=== PATIENT | female | born 1960 | race Caucasian/White ===

== ENCOUNTER 2024-04-15 14:55 | Emergency (ER) | payer MEDICARE, OTHER ==
[2024-04-15 16:10] LABS: BASOPHILS ABSOLUTE AUTO 0.05 K/uL (0.00-0.10); BASOPHILS PERCENT AUTO 1.1 % (0.1-1.3); EOSINOPHILS ABSOLUTE AUTO 0.09 K/uL (0.00-0.40); HEMOGLOBIN 7.4 g/dL (11.2-15.5); IMMATURE GRAN PERCENT AUTO 0.2 % (0.0-0.7); LYMPHOCYTES ABSOLUTE AUTO 0.57 K/uL (0.8-3.3); LYMPHOCYTES PERCENT AUTO 12.4 % (11.4-47.7); MEAN CORPUSCULAR HEMOGLOBIN 35.1 pg (31.6-35.5); MEAN CORPUSCULAR HGB CONC 32.2 g/dL (31.6-35.5); MONOCYTES ABSOLUTE AUTO 0.39 K/uL (0.20-0.90); MONOCYTES PERCENT AUTO 8.5 % (3.3-12.6); NEUTROPHILS ABSOLUTE AUTO 3.48 K/uL (1.0-7.6); NEUTROPHILS PERCENT AUTO 75.8 % (40.0-78.1); PLATELET COUNT,PLT 114 K/uL (130-375); RED BLOOD CELL COUNT 2.11 M/uL (3.77-5.24); WHITE BLOOD CELL COUNT,WBC 4.6 K/uL (3.2-11.0)
[2024-04-15 16:14] LABS: IMMATURE GRAN ABSOLUTE AUTO 0.01 K/uL (0.00-0.23)
[2024-04-15 16:16] LABS: CALCIUM 8.2 mg/dL (8.5-10.1); CREATININE 1.7 mg/dL (0.6-1.0); EST CRCL DRUG DOSING (CG) 23.7 mL/min; POTASSIUM,K 3.3 mmol/L (3.6-5.2)
[2024-04-15 16:19] LABS: ANION GAP 13.3 mmol/L (5.0-14.0)
[2024-04-15 16:24] LABS: RETICULOCYTE COUNT PERCENT 4.62 % (0.03-0.11)
[2024-04-15 16:25] LABS: INR 1.8; PROTHROMBIN TIME 17.8 sec (9.2-10.6)
[2024-04-15 16:30] LABS: TROPONIN I HIGH SENSITIVITY 72.1 pg/mL (<=60.3)
[2024-04-15 16:34] LABS: A/G RATIO 0.8 (1.2-2.2); ALBUMIN 3.2 g/dL (3.4-5.0); BILIRUBIN DIRECT 0.63 mg/dL (0.0-0.2); BILIRUBIN INDIRECT 0.27; BILIRUBIN TOTAL 0.9 mg/dL (0.2-1.0)
[2024-04-15] MEDS: Furosemide 40 MG/4 ML VIAL IVPUSH ONE (17:03)
== END 2024-04-15 21:38 ==
LOC: JP.ED 14:55
DX: R60.1 Generalized edema (principal); D53.9 Nutritional anemia, unspecified; I50.9 Heart failure, unspecified; Z79.899 Other long term (current) drug therapy; Z79.01 Long term (current) use of anticoagulants
CPT/HCPCS: 36415; 36430; 71046; 80048; 80076; 83880; 84484; 85025; 85045; 85610; 86850; 86900; 86901; 86920; 86922; 93005; 96374; 99285; J1940; P9016